=== PATIENT | male | born 1955 | race Caucasian/White ===

== ENCOUNTER → 2018-12-20 | Outpatient (CLI) | payer BC ==
--- NOTE | 2018-12-20 16:57 | KCIC ---
MR of the left wrist Indication: Left wrist pain, to recent injuries. Pain across the carpal bones. Comparison: None are available Technique: Standard multiplanar sequences are obtained. FINDINGS: Artifact: No significant image degradation Triangular fibrocartilage: Mild signal within the central disc. There is a small linear partial-thickness undersurface tear of the disc, near the radial attachment, nearly full-thickness but no definite through and through violation of the distal aspect. This defect measures no more than 1 mm wide. There is some heterogeneous signal at the lamina. Distal radioulnar alignment: Intact Extensor carpi ulnaris tendon: Intact, no significant dislocation. Other extensor compartments: Mild hypointense thickening of the second extensor compartment with mild fluid. Flexor tendons: Intact Median nerve: Unremarkable Scapholunate ligament: Thick and ill-defined at both anterior and posterior bands and proximal component. No through and through defect or rupture however. Lunotriquetral ligament: No evidence of a tear. Carpal bone alignment: Dorsal tilt of the lunate. There is increased lunocapitate axis. Also there is increased scapholunate angle. The scaphoid is subluxed posteriorly relative to the radius. Fluid: Small distal radioulnar joint effusion. Joints: Primary osteoarthritis identified at the radiocarpal and carpal joints as well as carpometacarpal joint and distal radioulnar joint. Bones: No acute fracture or aggressive bone destruction. There is patchy marrow edema within the distal radius and scaphoid. Soft tissues: There is soft tissue edema about the wrist. IMPRESSION: 1. Evidence of carpal instability (DISI), with dorsal lunate tilt, increased lunocapitate axis and increased scapholunate angle. 2. The scapholunate ligament demonstrates no through and through discontinuity, but appears diffusely thickened and heterogeneous compatible with partial tearing or scarring. 3. Deep linear partial proximal surface tear of the triangular fibrocartilage. 4. Mild second extensor compartment tenosynovitis. Electronically signed by: Jean-Paul Chen MD (12/20/2018 4:52 PM) [id number]
== END | disposition home or self-care (01) ==
LOC: KCIC MRI 15:48
PROVIDERS: ATTEND Orthopaedic Surgery Sports Medicine
DX: S63.592A Other specified sprain of left wrist, initial encounter (principal); M65.88 Other synovitis and tenosynovitis, other site; M19.032 Primary osteoarthritis, left wrist; M25.432 Effusion, left wrist; M25.332 Other instability, left wrist; X58.XXXA Exposure to other specified factors, initial encounter; Y93.89 Activity, other specified; Y92.89 Other specified places as the place of occurrence of the external cause; Y99.8 Other external cause status
CPT/HCPCS: 73221

== ENCOUNTER → 2021-04-06 | Outpatient (CLI) | payer BC ==
--- NOTE | 2021-04-06 09:11 | KCIC ---
Clinical indications: Generalized abdominal pain. Findings: The liver measures 15.1 cm in length and is homogeneous in appearance. The pancreas is homogeneous in appearance and no focal enlargement is seen. The gallbladder appears normal and no gallstones or gallbladder wall thickening is seen. No perichole cystic fluid is seen.No positive Paredes's sign was elicited during transducer examination of the gall bladder. No extrahepatic biliary ductal dilatation is seen and the extrahepatic bile duct measures 2.2 mm. The right kidney measures 10.0 cm in length and no hydronephrosis or perinephric fluid collection is seen. There is a complex cyst within the anterior mid aspect of the right kidney with multiple thin s eptations. This measures 2.0 cm. No abnormal color Doppler flow is seen within it. This is considered a Bosniak classification II F cyst. The left kidney measures 11.5 cm in length and no hydronephrosis or perinephric fluid collection is s een. There is a simple 3.0 cm cyst of the lower aspect of the left kidney and smaller complex cyst of the parapelvic region of the mid aspect of the left kidney which measures 1.9 cm. This latter cyst c ontains multiple thin septations without internal color flow and therefore is a Bosniak classificatio n II F cyst. The spleen measures 10.1 cm in length and is homogeneous in appearance. No focal aneurysmal dilatation of the abdominal aorta is seen. The IVC is unremarkable. No ascites is seen. IMPRESSION: No acute abnormality. Bilateral Bosniak classification II F cysts. Recommend bilateral renal sonographic follow-up in one y ear. Electronically signed by: Dangelo Lopez MD (04/06/2021 9:09 AM) [id number]
== END ==
LOC: KCIC US 07:49
PROVIDERS: ATTEND Family Medicine
DX: N28.1 Cyst of kidney, acquired (principal)
CPT/HCPCS: 76700